=== PATIENT | female | born 1970 | race Caucasian/White ===

== ENCOUNTER 2023-03-12 09:16 | Emergency (ER) | payer OTHER, SELFPAY ==
[2023-03-12 09:21] VITALS: BP 126/74; PULSE 61; RESP 14; TEMP 36.9; O2SAT 99; BMI 27.3
[2023-03-12 09:33] VITALS: PULSE 62
--- NOTE | 2023-03-12 09:38 | ED.LOWEXIN ---
HPI - Extremity Injury (Lower) General Chief Complaint: Extremity Injury, Lower Stated Complaint: tore off toenail bleeding Time Seen by Provider: 03/12/23 09:21 Source: patient Mode of arrival: Ambulatory History of Present Illness HPI Narrative: 53-year-old female presents for toe injury. Patient has a fungal infection of her left great toe, that has previously been treated with oral antifungals per her primary care physician. Last night patient was walking and tripped, tearing the majority of her toenail off. She is here today for pain and bleeding and is concerned about the toenail. Related Data Home Medications Medication Instructions Recorded Confirmed valacyclovir 1 gram tablet 500 mg PO DAILY 03/12/23 03/12/23 (Valtrex) Allergies Allergy/AdvReac Type Severity Reaction Status Date / Time Sulfa (Sulfonamide Allergy Intermediate Hives Verified 03/12/23 09:25 Antibiotics) Patient History Social History Smoking Status: Never smoker Smoking Status: Never smoker alcohol intake frequency: 0-2 drinks per day Substance Use Type: does not use Exam Initial Vital Signs Initial Vital Signs: Vital Signs Temperature 98.4 F 03/12/23 09:21 Pulse Rate 61 03/12/23 09:21 Respiratory Rate 14 03/12/23 09:21 Blood Pressure 126/74 03/12/23 09:21 Pulse Oximetry 99 03/12/23 09:21 Oxygen Delivery Method Room Air 03/12/23 09:21 Procedures Nerve Block Nerve Block 1: Time out performed: Yes Local Anesthetic: bupivacaine 0.5% Amount of anesthesia used (mL): 4 Nerve Blocks: digital (great toe) Procedure Successful: Yes Patient Tolerated Procedure: Well and No complications Complications: none Course Vital Signs Vital signs: Vital Signs - 8 hr 03/12/23 09:21 03/12/23 09:33 Temperature 98.4 F Pulse Rate 61 Pulse Rate [Left Dorsalis Pedis] 62 Respiratory Rate 14 Blood Pressure 126/74 Pulse Oximetry 99 Oxygen Delivery Method Room Air MDM - Extremity Injury (Lower) Differential Diagnosis Differential diagnosis: Likely ankle sprain and strain, acute internal derangement of knee and fracture of femur MDM Narrative Medical decision making narrative: 90% avulsed toenail. Removed per procedure note. Given referral to Podiatry. Additional wound care supplies sent home with patient and wound care discussed at length with patient. ED return precautions discussed at bedside. Patient expressed understanding of the plan and is in agreement at this time. All questions answered at the time of discharge. Discharge Plan Departure Patient Disposition: Home Clinical Impression: Toenail fungus, Toenail torn away Instructions: DI for Ingrown Toenail Removal, Foot Care: Toenails Prescriptions: No Action valacyclovir [Valtrex] 1 gram Tablet 500 mg PO DAILY Referrals: Cammy Cantu DPM [Physician] - Stefanie Randle DO [Primary Care Provider] - Stand Alone Forms: Patient Portal/API
== END 2023-03-12 10:01 | disposition home or self-care (01) ==
PROVIDERS: Emergency Provider Emergency Medicine; PCP Family Medicine
DX: B35.1 Tinea unguium (principal); S99.922A Unspecified injury of left foot, initial encounter
CPT/HCPCS: 99281